=== PATIENT | female | born 1940 | race Caucasian/White ===

== ENCOUNTER 2016-11-07 16:03 | Emergency (ER) | payer MEDICARE, OTHER ==
[~2016-11-07] VITALS: Ht 170.2 cm; Wt 88.5 kg
--- NOTE | 2016-11-07 16:55 | PHYS DOC ---
Past Medical History Past Medical History: Diabetes-Type II, GERD, High Cholesterol, Hypertension, Hypothyroid, Other Additional Past Medical Histor: TRIPLE AAA Additional Past Surgical Histo: CARPAL TUNNEL, RIGHT FOOT Alcohol Use: None Drug Use: None Adult General Chief Complaint Chief Complaint: MECHANICAL FALL HPI HPI Patient is a 76 year old female who presents with complaint of right knee pain after suffering a fall prior to arrival. Patient states that she accidentally tripped while at home and fell forward, hitting her right knee and the front of her head on the ground. Patient denied any loss of consciousness as a result of the fall. Patient states that she is having significant pain in her right knee which is causing her to have difficulty with weightbearing and ambulation. The patient states that she is currently on daily aspirin. Patient rates her pain currently as 3 out of 10 while at rest but states that the pain increases state out of 10 when she attempts to flex her right knee. Patient denies any other injuries. Patient has not taken any medication help with symptoms. Review of Systems Review of Systems Constitutional: Denies fever or chills [] Eyes: Denies change in visual acuity, redness, or eye pain [] HENT: Head injury, denies nasal congestion or sore throat [] Respiratory: Denies cough or shortness of breath [] Cardiovascular: Denies chest pain or edema [] GI: Denies abdominal pain, nausea, vomiting, bloody stools or diarrhea [] : Denies dysuria or hematuria [] Musculoskeletal: Right knee pain [] Integument: Denies rash or skin lesions [] Neurologic: Denies headache, focal weakness or sensory changes [] Current Medications Current Medications Current Medications Medications (Trade) Dose Ordered Sig/Goran Start Time Stop Time Status Last Admin Dose Admin Tramadol HCl (Ultram) 50 mg 1X ONCE 11/07/16 18:30 11/07/16 18:31 DC 11/07/16 18:31 50 MG Allergies Allergies Allergies Coded Allergies Type Severity Reaction Last Updated Verified No Known Drug Allergies 11/07/16 No Physical Exam Physical Exam Constitutional: Well developed, well nourished, no acute distress, non-toxic appearance. [] HENT: Normocephalic, 4 cm ecchymosis present on forehead, bilateral external ears normal, oropharynx moist, no oral exudates, nose normal. [] Eyes: PERRLA, EOMI, conjunctiva normal, no discharge. [] Neck: Normal range of motion, no tenderness, supple, no stridor. [] Cardiovascular:Heart rate regular rhythm, no murmur [] Lungs & Thorax: Bilateral breath sounds clear to auscultation [] Abdomen: Bowel sounds normal, soft, no tenderness, no masses, no pulsatile masses. [] Skin: Warm, dry, no erythema, no rash. [] Back: No tenderness, no CVA tenderness. [] Extremities: Moderate prepatellar soft tissue swelling with overlying abrasion, right knee tender to palpation, unable to flex knee secondary to pain, no cyanosis, no clubbing, no edema, pulses 2+ distal to injury. [] Neurologic: Alert and oriented X 3, normal motor function, normal sensory function, no focal deficits noted. [] Current Patient Data Vital Signs Vital Signs Date Time Temp Pulse Resp B/P Pulse Ox O2 Delivery O2 Flow Rate FiO2 11/07/16 19:33 91 20 146/83 97 Room Air 11/07/16 16:03 98.3 98.3 EKG EKG Not performed [] Radiology/Procedures Radiology/Procedures Two-view hip and AP pelvis interpreted by me: No fractures, normal soft tissue, normal alignment 3 view right knee x-ray interpreted by me: No fractures, normal alignment, normal soft tissue [facility] [address] [place] [address] IMAGING REPORT Signed PATIENT: ANUJ SIMON ACCOUNT: [id number] : 1940 LOCATION: ER AGE: 76 SEX: F EXAM STATUS: PRE ER ORD. PHYSICIAN: MARY ESPINOZA MD REASON: fall, head injury, takes daily aspirin PROCEDURE: CT HEAD WO CONTRAST PROCEDURE CT head without contrast. HISTORY Fall, hit head. On aspirin. TECHNIQUE Helical CT imaging of the brain is performed without IV contrast. PQRS: One or more the following individualized dose reduction techniques were utilized for the study: 1. Automated exposure control. 2. Adjustment of the mA and/or kV according to patient size. 3. Use of iterative reconstruction technique. COMPARISON None. FINDINGS There is no midline shift or mass effect. No extra-axial fluid collection or intraparenchymal hemorrhage. Faith-white matter differentiation is preserved. Ventricles and sulci are normal for patient age. There is periventricular white matter hypoattenuation, nonspecific but commonly due to chronic small vessel ischemic disease in a patient of this age. The visualized paranasal sinuses and mastoid air cells are clear. The globes and orbits appear intact. No acute calvarial abnormality. Minimal induration midline frontal scalp. IMPRESSION No acute intracranial abnormality. Electronically signed by: Dejuan Giang MD (Nov 07, 2016 17:24:52) DICTATED and SIGNED BY: DEJUAN GIANG MD DATE: 11/07/16 1724 CC: KANDY JORGE MD; MARY ESPINOZA MD ~ [] Course & Med Decision Making Course & Med Decision Making Pertinent Labs and Imaging studies reviewed. (See chart for details) Patient was treated with tramadol in the emergency department for pain. Patient' s x-rays negative for fracture. After speaking with the patient, she states that she feels comfortable going home at this time for continued therapy and does not wish to be admitted to the hospital despite limited ambulation. Patient states that her granddaughter will help take care of her at home and she will in excess to a roller walker to assist with ambulation. Advised follow- up in one week with patient's primary physician and return to emergency department for any worsening symptoms. Patient was understanding and in agreement with treatment plan. Dragon Disclaimer Dragon Disclaimer This electronic medical record was generated, in whole or in part, using a voice recognition dictation system. Departure Departure Impression: Primary Impression: Contusion of right knee Additional Impression: Closed head injury Disposition: 01 HOME, SELF-CARE Condition: IMPROVED Referrals: KANDY JORGE MD (PCP) Patient Instructions: Head Injury, Adult, Knee Pain Additional Instructions: Follow-up to primary doctor in the next 5 days. Return to emergency department for any worsening symptoms. Scripts Tramadol Hcl 50 Mg Tablet1 Tab PO Q6HRS PRN PAIN #30 TAB Prov:MARY ESPINOZA MD 11/07/16 Problem Qualifiers Primary Impression: Contusion of right knee Encounter type: initial encounter Qualified Code: S80.01XA - Contusion of right knee, initial encounter Additional Impression: Closed head injury Encounter type: initial encounter Qualified Code: S09.90XA - Unspecified injury of head, initial encounter MARY ESPINOZA MD Nov 07, 2016 16:55
--- NOTE | 2016-11-07 17:26 | RAD ---
PROCEDURE CT head without contrast. HISTORY Fall, hit head. On aspirin. TECHNIQUE Helical CT imaging of the brain is performed without IV contrast. PQRS: One or more the following individualized dose reduction techniques were utilized for the study: 1. Automated exposure control. 2. Adjustment of the mA and/or kV according to patient size. 3. Use of iterative reconstruction technique. COMPARISON None. FINDINGS There is no midline shift or mass effect. No extra-axial fluid collection or intraparenchymal hemorrhage. Faith-white matter differentiation is preserved. Ventricles and sulci are normal for patient age. There is periventricular white matter hypoattenuation, nonspecific but commonly due to chronic small vessel ischemic disease in a patient of this age. The visualized paranasal sinuses and mastoid air cells are clear. The globes and orbits appear intact. No acute calvarial abnormality. Minimal induration midline frontal scalp. IMPRESSION No acute intracranial abnormality. Electronically signed by: Dejuan Giang MD (Nov 07, 2016 17:24:52)
[2016-11-07] MEDS ORDERED: TRAMADOL 50 MG TABLET. PO ONE (18:30)
[2016-11-07] MEDS ORDERED: TRAM50TA PO (19:22)
[2016-11-07 19:33] VITALS: BP 146/83
--- NOTE | 2016-11-08 09:00 | RAD ---
Three-view right knee radiographs 11/07/2016 Clinical history: Right knee pain post fall. AP, lateral and oblique digital radiographs of the right knee were obtained. No fracture or dislocation of the right knee is seen. Mild degenerative changes are seen involving all 3 compartments of the right knee, particularly the medial compartment. Atherosclerotic calcification of the right popliteal artery is noted. Impression: No fracture or dislocation of the right knee is seen.
--- NOTE | 2016-11-08 09:03 | RAD ---
AP pelvis to include AP and lateral digital radiographs of the right hip 11/07/2016 Clinical history: Right hip pain post fall. An AP digital radiograph of the pelvis was obtained. AP and lateral digital radiographs of the right hip were obtained. No pelvic bone fracture is seen. Both hips are intact. Specifically no fracture or dislocation of the right hip is seen. Moderate degenerative changes are seen involving the lower lumbar spine. Mild to moderate degenerative changes are seen involving both SI joints. Mild degenerative changes are seen involving both hips. Atherosclerotic calcification of the abdominal aorta and its branches is noted. Impression: No fracture or dislocation is seen.
== END 2016-11-07 19:33 | disposition home or self-care (01) ==
LOC: ER 16:03
DX: S80.01XA Contusion of right knee, initial encounter (principal); S09.90XA Unspecified injury of head, initial encounter; E11.9 Type 2 diabetes mellitus without complications; E03.9 Hypothyroidism, unspecified; E78.00 Pure hypercholesterolemia, unspecified; I10 Essential (primary) hypertension; K21.9 Gastro-esophageal reflux disease without esophagitis; Z79.82 Long term (current) use of aspirin; W01.198A Fall on same level from slipping, tripping and stumbling with subsequent striking against other object, initial encounter; Y93.89 Activity, other specified; Y92.89 Other specified places as the place of occurrence of the external cause; Y99.8 Other external cause status
CPT/HCPCS: 70450; 73502; 73562; 99284-25

== ENCOUNTER → 2020-11-25 | Outpatient (CLI) | payer MEDICARE, OTHER ==
[~2020-11-25] MED LIST: DULO20CA PO; LEVO25TA55 PO; METF500T16 PO; METO-239 PO; RALO60TA10 PO; TRAM50TA PO
--- NOTE | 2020-11-25 12:10 | PDOC1 ---
INITIAL PAIN CONSULT DATE OF SERVICE: DOS: DATE: 11/25/20 TIME: 12:03 CHIEF COMPLAINT: Chief Complaint: Low back and left lower extremity pain HISTORY OF PRESENT ILLNESS: 80-year-old female presents with history of pain low back left lower extremity for about 5 years on and off in intensity worse over the past few months without any specific injury or accident that she is aware but increasing the low back ra ting the posterior gluteus posterior thigh posterior calf left leg with some numbness in all of her toes at times as well patient reports is worse with walking and standing changing positions better with sitting or laying down generally does not awaken her from sleep at night does not affect her bowel bladder control but does affect her ability to walk does not use any assistive devices however to ambulate. Patient has had previous physical therapy also chiropractic treatment and exercises without significant improvement long-term but short-term was improved. Patient reports he is taking tramadol about half a tablet once or twice daily which does decrease the pain by about 50% patient reports the pain is in the back and the leg described as sharp and shooting in the leg intermittent intensity worse with activity numbness in the foot and leg as well is radiating in the left leg as described patient ports some aching and cramping in the back also patient rates her disability rating 0-10 10 being the worst as a 6 with family home responsibilities occupation self-care and life support activities 8 with recreation and social activities. Patient did have an MRI scan of the lumbar spine showing multilevel degenerative changes and disc bulges progressive since 2015, with left greater than right marked foraminal stenosis at L5-S1 moderate diffuse bulging at L4-5 and L3-4. Patient reports no loss of motor function but significant fatigability of the left lower extremity with activity and especially standing. PAST MEDICAL HISTORY: PMH: Dizziness, aortic aneurysm prediabetes, hypothyroidism, anemia, cataract PREVIOUS SURGERIES: Past Surgical Hx: Abdominal aortic aneurysm repair and stenting 2016, cataract extractions bilaterally CURRENT MEDICATIONS: Current Meds: Active Scripts Medications Dose Route/Sig Max Daily Dose Days Date Category Cymbalta (Duloxetine Hcl) 20 Mg Capsule. 1 Cap PO DAILY 11/25/20 Reported Raloxifene HCl 60 Mg Tablet 60 Mg PO DAILY 11/25/20 Reported Metformin Hcl 500 Mg Tablet 250 Mg PO BID 11/25/20 Reported Metoprolol Succinate ( Xl ) (Metoprolol Succinate) 25 Mg Tab.er.24h 1 Tab PO DAILY 11/25/20 Reported Synthroid (Levothyroxine Sodium) 25 Mcg Tablet 1 Tab PO DAILY 11/25/20 Reported Tramadol Hcl 50 Mg Tablet 1 Tab PO Q6HRS PRN 11/07/16 Rx ALLERGIES; Allergies: Coded Allergies: No Known Drug Allergies (Unverified , 11/07/16) FAMILY HISTORY: Family Hx: Diabetes SOCIAL HISTORY: Social Hx: Patient does not drink alcohol, does not smoke, does not use any illegal illicit recreational drugs is single lives locally in [place], [place] has 1 grandson living with her. REVIEW OF SYSTEMS: ROS: Positive for those items mentioned in history of present illness, all systems are reviewed, otherwise negative ,and are complete full and well-documented on patient's chart. PHYSICAL EXAM: VS: Blood pressure 126/70 pulse 70 respirations 18 temperature is 98.6 3 Fahrenheit height is 5' 7 inches weight is 201 pounds PE: PHYSICAL EXAMINATION: GENERAL: The patient is awake, alert, oriented, appropriate, very pleasant demeanor HEENT: Shows normocephalic, atraumatic. Extraocular movements are intact and symmetrical. Oral cavity: Mucous membranes moist and pink. Dentition is intact. NECK: Shows anterior throat supple without palpable lymphadenopathy noted. Swallow reflex symmetrical. CHEST: Shows normal on inspection. Breath sounds are clear bilaterally, no rales rhonchi wheezes auscultated. HEART: Shows S1, S2 clear. No murmurs auscultated. ABDOMEN: Soft, nontender, nondistended, obese. No palpable organomegaly is noted. No rebound or guarding demonstrated. BACK: Shows spine grossly in the midline. Normal-appearing cervical lordotic curvature. There is slightly increased thoracic kyphosis, some minor flattening of the lumbar lordotic curvature. Lumbar paraspinous muscles show symmetrical on inspection, on palpation shows some moderate tenderness diffusely throughout the upper, middle and lower distribution of the paraspinous muscles bilaterally and also into the lower thoracic paraspinous musculature, firm and tender, but without specific trigger points, without radiation of pain. The patient has good rotational motion of the lumbar spine, both laterally as well as extension and flexion without significant difficulty. No tenderness over the spinous processes, sacrum or sacroiliac regions. EXTREMITIES: Lower extremities show deep tendon reflexes 2+ in the patellar and tendo calcaneus tendons. Motor exam is 5 on a scale of 5 with right dorsiflexion, extension, quadriceps and hamstring flexion and 4/5 on the left. Peripheral pulses are 1+ posterior tibial. No peripheral edema is noted bilaterally. Lower extremities are warm and dry to touch, equal in color and appearance. Straight leg raise noted to be negative on the right, left side is positive at approximately 40 degrees, decreased with knee flexion. Gaenslen's and Yuan's maneuvers are negative bilaterally as well. The patient is able to stand, stand on her toes without significant difficulty or loss of balance walks with a normal-appearing gait does not appear to favor the right or left lower extremity significantly is not use any assistive devices to ambulate. SKIN: Shows warm and dry, good turgor. No edema. No sores, rashes or bruising throughout. IMPRESSION: Impression: 80-year-old female with long history approximate 5 years increasing over the past year low back left lower extremity pain in a radicular fashion. MRI scan lumbar spine as noted Plan: Options were discussed with the patient including conservative medical management physical therapies interventional techniques. Patient elects interventional techniques. We discussed a lumbar epidural steroid injection usi ng description as well as anatomical models to describe the procedure. Patient will return, as she has another obligation an appointment that she needs to get to today. We will make arrangements for her to return and plan on lumbar epidural steroid injection at that time. RENE LEONARD MD Nov 25, 2020 12:10
== END | disposition home or self-care (01) ==
LOC: PNCL 10:18
PROVIDERS: ATTEND Anesthesiology
DX: M54.5 Low back pain (principal); M79.605 Pain in left leg; E03.9 Hypothyroidism, unspecified; R73.03 Prediabetes; Z79.84 Long term (current) use of oral hypoglycemic drugs; Z79.899 Other long term (current) drug therapy; Z98.890 Other specified postprocedural states; Z83.3 Family history of diabetes mellitus
CPT/HCPCS: 99214; G0463

== ENCOUNTER → 2020-12-02 | Outpatient (CLI) | payer MEDICARE, OTHER ==
[~2020-12-02] MED LIST changes: +BUPIVACAINE MPF 0.25% 10 ML VIAL. ONE; +IOHEXOL 180 MG/ML 10 ML VIAL. ONE; +methylPREDNISolone ACETATE 80 MG/ML VIAL. ONE
--- NOTE | 2020-12-02 12:21 | PDOC ---
Progress Note - Pain Clinic Date of Service: DOS: DATE: 12/02/20 TIME: 12:18 Diagnosis: Dx: Lumbar radiculopathy with lumbar degenerative disease and lumbar spinal stenosis History or Present Illness: HPI: 80-year-old female returns in follow-up status post initial evaluation and return for transforaminal injection left L5-S1. Patient reports pain essentially the same in the low back and left lower extremity posterior gluteus posterior thigh posterior calf some in the right but always more noticeable and painful on the left side patient reports a 7 on scale 10 is worse over the past week for an average to its least and is a 4 today patient reports no new motor or sensory deficits. Bowel bladder incontinence better with sitting or laying down generally not awaken her from sleep over the past few days. Patient reports no new motor or sensory changes or other concerns. Physical Exam: VS: Blood pressure is 140/73 pulse 71 respirations 18 temperature 98.6 F weight is 206 pounds PE: PHYSICAL EXAMINATION: GENERAL: The patient is awake, alert, oriented, appropriate, very pleasant demeanor HEENT: Shows normocephalic, atraumatic. Extraocular movements are intact and symmetrical. Oral cavity: Mucous membranes moist and pink. NECK: Shows anterior throat supple without palpable lymphadenopathy noted. Swallow reflex symmetrical. CHEST: Shows normal on inspection. Breath sounds are clear bilaterally. HEART: Shows S1, S2 clear. No murmurs auscultated. ABDOMEN: Soft, nontender, nondistended, obese. No palpable organomegaly is noted. BACK: Shows spine grossly in the midline. Normal-appearing cervical lordotic curvature. There is slightly increased thoracic kyphosis, some minor flattening of the lumbar lordotic curvature. Lumbar paraspinous muscles show symmetrical on inspection, on palpation shows some moderate tenderness diffusely throughout the upper, middle and lower distribution of the paraspinous muscle without specific trigger points, without radiation of pain. The patient has good rotational motion of the lumbar spine, both laterally as well as extension and flexion without significant difficulty. EXTREMITIES: Lower extremities show deep tendon reflexes 2+ in the patellar and tendo calcaneus tendons. Motor exam is 5 on a scale of 5 with right dorsiflexion, extension, quadriceps and hamstring flexion and 4/5 on the left. Peripheral pulses are 1 to posterior tibial. No peripheral edema is noted bilaterally. Lower extremities are warm and dry to touch, equal in color and appearance. SKIN: Shows warm and dry, good turgor. No edema. No sores, rashes or bruising throughout. Procedure: Procedure: Options were discussed with the patient. Patient's old chart was reviewed as her current medication regimen updated current review of systems updated today as well. We will proceed with a left L5-S1 transforaminal steroid injection today with fluoroscopic guidance. Risks were discussed including but not limited to: Bleeding, infection, possibility of epidural hematoma and subsequent neurological compromise, dural puncture, headaches, spinal cord and/or nerve damage, potential injection into the vertebral artery at that level and permanent ischemic damage, side effects of steroid medication, and poor results regarding pain control. Patient understands and wished to proceed. Medication Injected: Med Injected: Under sterile prep and drape patient was placed in prone position using C-arm fluoroscopic guidance to identify the L5-S1 distribution oblique and slightly cephalad angled C arm. The left L5-S1 target was identified and using lidocaine for anesthetizing the skin 22-gauge Kami pencil point needle was then used to enter the skin and into the subcutaneous tissues using direct C-arm fluoroscopic guidance to guide the needle into the transforaminal aspect of the left L5-S1 vertebrae this was confirmed with lateral views showing the needle tip in the superior aspect of the paravertebral region. Aspiration was noted to be negative, 1.5 cc of contrast was then injected with good spread both medially into the epidural space as well as laterally along the nerve root without uptake and without distribution and uptake on digital subtraction. At this time, a solution containing 2 cc of 0.25% bupivacaine and 80 mg of Depo-Medrol was then injected. Needle was withdrawn and sterile bandage was applied. Patient tolerated procedure well had no immediate complications Condition at Discharge: Condition at Discharge: Condition at discharge is stable, patient already procedure well and had no complications. RENE LEONARD MD December 02, 2020 12:21
== END | disposition home or self-care (01) ==
LOC: PNCL 11:06
PROVIDERS: ATTEND Anesthesiology
DX: M51.16 Intervertebral disc disorders with radiculopathy, lumbar region (principal); M48.061 Spinal stenosis, lumbar region without neurogenic claudication; Z79.84 Long term (current) use of oral hypoglycemic drugs; Z79.899 Other long term (current) drug therapy
CPT/HCPCS: 64483; J1040; J3490; Q9965

== ENCOUNTER → 2020-12-15 | Outpatient (CLI) | payer MEDICARE, OTHER ==
[~2020-12-15] MED LIST changes: -BUPIVACAINE MPF 0.25% 10 ML VIAL. ONE; -IOHEXOL 180 MG/ML 10 ML VIAL. ONE; -methylPREDNISolone ACETATE 80 MG/ML VIAL. ONE
--- NOTE | 2020-12-15 11:50 | PDOC ---
Progress Note - Pain Clinic Date of Service: DOS: DATE: 12/15/20 TIME: 11:47 Diagnosis: Dx: Lumbar radiculopathy with lumbar degenerative disease and lumbar spinal stenosis History or Present Illness: HPI: 80-year-old female returns follow-up status post lumbar transforaminal injection L5-S1 on the left x1. Patient reports 100% improvement after the injection with no pain left in the back or the left lower extremity. Patient reports he been increasing her activity to greater ease and comfort and walking greater distances doing household activities travel with greater ease and comfort and sleeping much better at night. Patient reports does not awaken her from sleep patient reports her pain is aching in the low back only but not radiating to the lower extremity at this time patient rates her pain as a 2 on scale 10 on average worst and least over the past week and is a 2 today patient reports no new motor or sensory deficits, no new bowel or bladder complaints. Physical Exam: VS: Blood pressure is 135/70 pulse 77 temperature 98.1 F height is 5 feet 7 inches weight is 199 pounds PE: PHYSICAL EXAMINATION: GENERAL: The patient is awake, alert, oriented, appropriate, very pleasant demeanor HEENT: Shows normocephalic, atraumatic. Extraocular movements are intact and symmetrical. NECK: Shows anterior throat supple without palpable lymphadenopathy noted. Swallow reflex symmetrical. CHEST: Shows normal on inspection. Breath sounds are clear bilaterally. HEART: Shows S1, S2 clear. No murmurs auscultated. ABDOMEN: Soft, nontender, nondistended. No palpable organomegaly is noted. No rebound or guarding demonstrated. BACK: Shows spine grossly in the midline. Normal-appearing cervical lordotic curvature. There is slightly increased thoracic kyphosis, some minor flattening of the lumbar lordotic curvature. Lumbar paraspinous muscles show symmetrical on inspection, on palpation shows some moderate tenderness diffusely throughout the upper, middle and lower distribution of the paraspinous muscles without specific trigger points, without radiation of pain. The patient has good rotational motion of the lumbar spine, both laterally as well as extension and flexion without significant difficulty. No tenderness over the spinous pr ocesses, sacrum or sacroiliac regions. EXTREMITIES: Lower extremities show deep tendon reflexes 2+ in the patellar and tendo calcaneus tendons. Motor exam is 5 on a scale of 5 with right dorsiflexion, extension, quadriceps and hamstring flexion and 4/5 on the left. Peripheral pulses are 1+ posterior tibial. No peripheral edema is noted bilaterally. Lower extremities are warm and dry to touch, equal in color and appearance. SKIN: Shows warm and dry, good turgor. No edema. No sores, rashes or bruising throughout. Procedure: Procedure: Options were discussed with the patient. Patient's old chart was reviewed as her current medication regimen updated current review of systems updated today as well. We will hold on any further injections at this time as patient is doing quite a bit better. Patient was encouraged increase activity as tolerated and will return to the clinic on as-needed basis at this time. Medication Injected: Med Injected: None Condition at Discharge: Condition at Discharge: Condition at discharge is stable. RENE LEONARD MD December 15, 2020 11:50
== END | disposition home or self-care (01) ==
LOC: PNCL 10:37
PROVIDERS: ATTEND Anesthesiology
DX: M51.16 Intervertebral disc disorders with radiculopathy, lumbar region (principal); M48.061 Spinal stenosis, lumbar region without neurogenic claudication; Z79.899 Other long term (current) drug therapy
CPT/HCPCS: 99212; G0463

== ENCOUNTER → 2021-03-30 | Outpatient (CLI) | payer MEDICARE, OTHER ==
[~2021-03-30] MED LIST changes: +IOHEXOL 180 MG/ML 10 ML VIAL. ONE; +methylPREDNISolone ACETATE 80 MG/ML VIAL. ONE
--- NOTE | 2021-03-30 08:53 | PDOC ---
Progress Note - Pain Clinic Date of Service: DOS: DATE: 03/30/21 TIME: 08:50 Diagnosis: Dx: Lumbar radiculopathy with lumbar degenerative disease and lumbar spinal stenosis History or Present Illness: HPI: 80-year-old female returns for follow-up status post left L5-S1 transforaminal injection December 15, 2020. Patient reports he did very well near understand improvement for several months pain is returning now and has new findings of pain in both lower extremities were previously was on the left side now the right side is equally as painful in the posterior gluteus posterior thigh posterior calf patient reports is now bilateral worse with walking standing changing positions initially to do much better with distance walking doing household activities travel with greater ease and comfort sleeping better at night patient reports still does not awaken her from sleep at night feels much better with laying down or sitting is much worse with walking standing and changing positions patient rates her pain is 8 on scale 10 is worse over the past week 7 on average 5 its least and is a 5 today patient reports is stabbing and radiating can be tight and shooting in the low back as well as sharp and aching patient reports no bowel or bladder incontinence no motor or sensory deficits. Physical Exam: VS: Blood pressure is 120/84 pulse 74 respirations 18 temperature 98.2 F weight is 200 pounds. PE: PHYSICAL EXAMINATION: GENERAL: The patient is awake, alert, oriented, appropriate, very pleasant in demeanor HEENT: Shows normocephalic, atraumatic. Extraocular movements are intact and symmetrical. Oral cavity: Mucous membranes moist and pink. NECK: Shows anterior throat supple without palpable lymphadenopathy noted. Swallow reflex symmetrical. CHEST: Shows normal on inspection. Breath sounds are clear bilaterally, no rales rhonchi wheezes auscultated. HEART: Shows S1, S2 clear. No murmurs auscultated. ABDOMEN: Soft, nontender, nondistended, obese. No palpable organomegaly is noted. BACK: Shows spine grossly in the midline. Normal-appearing cervical lordotic curvature. There is slightly increased thoracic kyphosis, some minor flattening of the lumbar lordotic curvature. Lumbar paraspinous muscles show symmetrical on inspection, on palpation shows some moderate tenderness diffusely throughout the upper, middle and lower distribution of the paraspinous muscles, but without specific trigger points, without radiation of pain. The patient has good rotational motion of the lumbar spine, both laterally as well as extension and flexion without significant difficulty. No tenderness over the spinous processes, sacrum or sacroiliac regions. EXTREMITIES: Lower extremities show deep tendon reflexes 2+ in the patellar and tendo calcaneus tendons. Motor exam is 5 on a scale of 5 with right dorsiflexion, extension, quadriceps and hamstring flexion and 4/5 on the left. Peripheral pulses are 1 posterior tibial. No peripheral edema is noted bilaterally. Lower extremities are warm and dry to touch, equal in color and appearance. SKIN: Shows warm and dry, good turgor. No edema. No sores, rashes or bruising throughout. Procedure: Procedure: Options were discussed with patient. Patient chart was reviewed his current medication regimen updated current review of systems updated today as well. We will proceed with a lumbar epidural steroid injection today with fluoroscopic guidance. Risks were discussed including but not limited to: Bleeding, infection, possibility of epidural hematoma and subsequent neurological compromise, dural puncture, headaches, spinal cord and/or nerve damage, side effects of steroid medication, and poor results regarding pain control. Patient understands and wished to proceed. Patient return to the clinic in approximate 2 weeks for follow-up, was counseled as return appointment activity level and side effects to be aware of. Medication Injected: Med Injected: Procedure is lumbar epidural steroid injection under local anesthetic using sterile prep and drape at the L5-S1 level using C-arm fluoroscopic guidance in both AP and lateral views medications injected is 120 mg Depo-Medrol +10mL preservative-free normal saline and 2 mL contrast- condition at discharge is stable patient tolerated procedure well had no complications. Condition at Discharge: Condition at Discharge: Condition at discharge stable, patient already the procedure well and had no complications. RENE LEONARD MD Mar 30, 2021 08:53
--- NOTE | 2021-03-30 08:54 | PDOC4 ---
Procedure Note: ICD 10 Code: ICD 10 Code: M54.16 M 48.06 M51.36 Procedure Note: Patient was consented for lumbar epidural steroid injection with fluoroscopic guidance. Risks were discussed including but not limited to: Bleeding, infection, possibility of epidural hematoma and subsequent neurological compromise, dural puncture, headaches, spinal cord and/or nerve damage, side effects of steroid medication, and poor results regarding pain control. Patient understands and wished to proceed. Procedure is lumbar epidural steroid injection under local anesthetic using kim rile prep and drape at the L5-S1 level using C-arm fluoroscopic guidance in both AP and lateral views medications injected is 120 mg Depo-Medrol +10mL preservative-free normal saline and 2 mL contrast- condition at discharge is stable patient tolerated procedure well had no complications. RENE LEONARD MD Mar 30, 2021 08:54
== END ==
LOC: PNCL 08:13
PROVIDERS: ATTEND Anesthesiology
DX: M51.17 Intervertebral disc disorders with radiculopathy, lumbosacral region (principal); M48.061 Spinal stenosis, lumbar region without neurogenic claudication
CPT/HCPCS: 62323; J1040; Q9965

== ENCOUNTER 2021-12-13 10:41 | Emergency (ER) | payer MEDICARE, OTHER ==
[~2021-12-13] VITALS: Ht 170.2 cm; Wt 88.5 kg
[~2021-12-13 10:41] MED LIST changes: -IOHEXOL 180 MG/ML 10 ML VIAL. ONE; -methylPREDNISolone ACETATE 80 MG/ML VIAL. ONE
[2021-12-13 10:50] VITALS: BP 149/78
--- NOTE | 2021-12-13 11:27 | PHYS DOC ---
Past Medical History Past Medical History: Diabetes-Type II, GERD, High Cholesterol, Hypertension, Hypothyroid, Other Additional Past Medical Histor: TRIPLE AAA Additional Past Surgical Histo: CARPAL TUNNEL, RIGHT FOOT Smoking Status: Never Smoker Alcohol Use: None Drug Use: None General Adult EDM: Chief Complaint: OTHER COMPLAINTS HPI: HPI: Patient is a 81 year old female who presents after insertion of a tampon 2 days ago, patient states that she cannot find it now. She states that she used a tampon because she was using estrogen cream, the cream kept falling out so she put the cream on the tampon and then inserted a tampon. She does not remember the tampon coming out. She is currently asymptomatic. Review of Systems: Review of Systems: Constitutional: Denies fever or chills. [] Eyes: Denies change in visual acuity. [] HENT: Denies nasal congestion or sore throat. [] Respiratory: Denies cough or shortness of breath. [] Cardiovascular: Denies chest pain or edema. [] GI: Denies abdominal pain, nausea, vomiting, bloody stools or diarrhea. [] : Denies dysuria. [] Musculoskeletal: Denies back pain or joint pain. [] Integument: Denies rash. [] Neurologic: Denies headache, focal weakness or sensory changes. [] Endocrine: Denies polyuria or polydipsia. [] Lymphatic: Denies swollen glands. [] Psychiatric: Denies depression or anxiety. [] Heart Score: C/O Chest Pain: No Risk Factors: Risk Factors: DM, Current or recent (<one month) smoker, HTN, HLP, family history of CAD, obesity. Risk Scores: Score 0 - 3: 2.5% MACE over next 6 weeks - Discharge Home Score 4 - 6: 20.3% MACE over next 6 weeks - Admit for Clinical Observation Score 7 - 10: 72.7% MACE over next 6 weeks - Early Invasive Strategies Allergies: Allergies: Allergies Coded Allergies Type Severity Reaction Last Updated Verified No Known Drug Allergies 11/07/16 No Physical Exam: PE: Constitutional: Well developed, well nourished, no acute distress, non-toxic appearance. [] HENT: Normocephalic, atraumatic, bilateral external ears normal, oropharynx moist, no oral exudates, nose normal. [] Eyes: PERRLA, EOMI, conjunctiva normal, no discharge. [] Neck: Normal range of motion, no tenderness, supple, no stridor. [] Cardiovascular:Heart rate regular rhythm, no murmur [] Lungs & Thorax: Bilateral breath sounds clear to auscultation [] Abdomen: Bowel sounds normal, soft, no tenderness, no masses, no pulsatile masses. [] Skin: Warm, dry, no erythema, no rash. [] Back: No tenderness, no CVA tenderness. [] Extremities: No tenderness, no cyanosis, no clubbing, ROM intact, no edema. [] Neurologic: Alert and oriented X 3, normal motor function, normal sensory function, no focal deficits noted. [] Psychologic: Affect normal, judgement normal, mood normal. [] EKG: EKG: [] Radiology/Procedures: Radiology/Procedures: [] Speculum exam did not reveal tampon, cervix visualized Impression: Vaginal foreign body Course & Med Decision Making: Course & Med Decision Making Pertinent Labs and Imaging studies reviewed. (See chart for details) No foreign body was visualized, likely has already fallen out. Patient instruct ed to return if she is having any sort of symptoms. Patient will follow-up with primary care physician this week as well. Patient agrees with the plan. She refused any other work-up. She states that it probably just fell out, she wanted to make sure. All questions answered. Patient discharged in stable condition. ER return precautions given. Kaiden Disclaimer: Kaiden Disclaimer: This electronic medical record was generated, in whole or in part, using a voice recognition dictation system. Departure Departure Impression: Primary Impression: Vaginal irritation Disposition: HOME / SELF CARE / HOMELESS Condition: GOOD Patient Instructions: Vaginal Foreign Body, [id number] Additional Instructions: Follow-up with your primary care physician in 3 to 5 days He may return to the emergency department if you are having more symptoms No tampon was found today VERO GARDNER MD December 13, 2021 11:27
== END 2021-12-13 11:29 | disposition home or self-care (01) ==
LOC: ER 10:41
DX: N76.89 Other specified inflammation of vagina and vulva (principal); E11.9 Type 2 diabetes mellitus without complications; K21.9 Gastro-esophageal reflux disease without esophagitis; E78.00 Pure hypercholesterolemia, unspecified; I10 Essential (primary) hypertension; E03.9 Hypothyroidism, unspecified
CPT/HCPCS: 99281